=== PATIENT | female | born 1995 | race Two or more races ===

== ENCOUNTER 2021-09-03 17:15 | Inpatient (IN) | payer OTHER ==
[2021-09-03 18:49] VITALS: BMI 39.5
[2021-09-03] MEDS: ELECTROLYTE-148 SOLN 1,000 ML IV SCH (19:45)
[2021-09-03 20:26] LABS: BASO % 0.8 % (0-2.0); EOS % 0.1 % (0-4.5); HEMATOCRIT 39.9 % (32.4-45.2); HEMOGLOBIN 13.5 GM/dL (10.7-15.3); MCH 27.8 pg (25.7-33.7); MCHC 33.8 g/dl (32.0-36.0); MEAN CELL VOLUME 82.2 fl (80-96); MEAN PLT VOLUME 9.3 fl (7.5-11.1); MONO % 5.4 % (3.8-10.2); NEUT % 80.7 % (42.8-82.8); PLATELET COUNT 338 10^3/uL (134-434); RBC 4.86 M/mm3 (3.60-5.2); WHITE BLOOD COUNT 15.9 K/mm3 (4.0-10.0)
[2021-09-03 20:33] LABS: INR 0.96 (0.83-1.09)
[2021-09-03 20:36] LABS: ACTIVATED PTT 28.7 SECONDS (25.2-36.5)
[2021-09-03 20:48] LABS: CALCIUM 9.1 mg/dL (8.5-10.1)
[2021-09-03 20:49] LABS: BLOOD UREA NITROGEN 7.3 mg/dL (7-18)
[2021-09-03 20:52] LABS: CREATININE 0.6 mg/dL (0.55-1.3)
[2021-09-03] MEDS ORDERED: FENTANYL/BUPIVACAINE/NS/PF - PCEA - 50 ML DISP.SYRIN EP ONE (21:52)
[2021-09-03] MEDS ORDERED: OXYTOCIN 20 UNITS in 0.9% NS 20 UNIT/1,000 ML INFUS.BAG IV ONE (22:56)
[2021-09-03] MEDS ORDERED: LIDOCAINE HCL 1% PRESERVATIVE FREE - 30ML VIAL ONE (22:57)
[2021-09-03] MEDS ORDERED: MISOPROSTOL 200 MCG TABLET ONE (23:54)
[2021-09-04] MEDS ORDERED: oxyCODONE HCL 5 MG TABLET PO ONE (00:05)
[2021-09-04] MEDS ORDERED: oxyCODONE HCL 5 MG TABLET ONE (00:06)
[2021-09-04] MEDS ORDERED: BENZOCAINE 28 GM HEMORRHOIDAL OINTMENT TP PRN (00:09)
[2021-09-04] MEDS ORDERED: WITCH HAZEL 50% (TUCKS) 40 PAD/JAR PAD TP PRN (00:09)
[2021-09-04] MEDS ORDERED: BISACODYL 10 MG SUPP.RECT RC PRN (00:09)
[2021-09-04] MEDS ORDERED: METHYLERGONOVINE MALEATE 0.2 MG/1 ML AMP IM PRN (00:09)
[2021-09-04] MEDS ORDERED: BENZOCAINE 20% 57 GM BOTTLE TP PRN (00:09)
[2021-09-04] MEDS ORDERED: IBUPROFEN 600 MG TABLET (FP) PO PRN (00:09)
[2021-09-04] MEDS ORDERED: ACETAMINOPHEN 325 MG TABLET (FP) PO PRN (00:09)
[2021-09-04] MEDS ORDERED: OXYTOCIN 20 UNITS in 0.9% NS 20 UNIT/1,000 ML INFUS.BAG IV SCH (00:15)
[2021-09-04] MEDS ORDERED: MISOPROSTOL 25 MCG TABLET (COMPOUNDED BY PHARMACY) PV ONE (00:18)
[2021-09-04] MEDS ORDERED: DIPHTH,PERTUSS(ACELL),TET 0.5 ML DISP.SYRIN IM ONE (10:00)
[2021-09-04] MEDS: PRENATAL VITAMINS W/ FOLIC ACID TABLET (FP) PO SCH (10:25)
[2021-09-04] MEDS: ELECTROLYTE-148 SOLN 1,000 ML IV SCH (23:56)
[2021-09-05] MEDS: PRENATAL VITAMINS W/ FOLIC ACID TABLET (FP) PO SCH (09:17)
[2021-09-05 09:44] LABS: BASO % 0.1 % (0-2.0); EOS % 0.7 % (0-4.5); HEMATOCRIT 26.6 % (32.4-45.2); HEMOGLOBIN 8.9 GM/dL (10.7-15.3); LYMPH % 15.1 % (8-40); MCH 28.1 pg (25.7-33.7); MCHC 33.5 g/dl (32.0-36.0); MEAN CELL VOLUME 83.9 fl (80-96); MEAN PLT VOLUME 8.4 fl (7.5-11.1); MONO % 7.1 % (3.8-10.2); PLATELET COUNT 260 10^3/uL (134-434); RBC 3.16 M/mm3 (3.60-5.2); RDW 17.2 % (11.6-15.6)
[2021-09-05 12:10] VITALS: BP 116/74; PULSE 82; TEMP 98.8
[2021-09-05] MEDS ORDERED: SENNOSIDES/DOCUSATE COMBO (SENNA PLUS) TABLET (UD) PO PRN (22:00)
== END 2021-09-05 13:05 | disposition home or self-care (01) | DRG 560 ==
LOC: JDEL 17:15 → JLDR 18:15 → J3W 09-04 02:54
PROVIDERS: ADMIT Obstetrics & Gynecology; ATTEND Obstetrics & Gynecology
PROC: 10E0XZZ Delivery of Products of Conception, External Approach (ICD-10-PCS; principal; 2021-09-03)
PROC: 0HQ9XZZ Repair Perineum Skin, External Approach (ICD-10-PCS; 2021-09-03)
DX: O70.0 First degree perineal laceration during delivery (principal); O69.81X0 Labor and delivery complicated by cord around neck, without compression, not applicable or unspecified; O72.1 Other immediate postpartum hemorrhage; Z3A.39 39 weeks gestation of pregnancy; Z37.0 Single live birth
CPT/HCPCS: 36415; 59409; 80048; 85025; 85610; 85730; 86780; 86850; 86900; 86901; 90715; C9803-CS; U0003; U0005

== ENCOUNTER 2022-11-02 06:15 | Inpatient (IN) | payer OTHER ==
[2022-11-02] MEDS ORDERED: ELECTROLYTE-148 SOLN 1,000 ML IV SCH (08:15)
[2022-11-02 08:38] LABS: BASO % 0.3 % (0-2.0); EOS % 0.2 % (0-4.5); HEMATOCRIT 34.2 % (32.4-45.2); HEMOGLOBIN 10.8 GM/dL (10.7-15.3); LYMPH % 12.3 % (8-40); MCHC 31.7 g/dl (32.0-36.0); MEAN CELL VOLUME 69.4 fl (80-96); MONO % 6.5 % (3.8-10.2); NEUT % 80.7 % (42.8-82.8); PLATELET COUNT 439 10^3/uL (134-434); RBC 4.93 M/mm3 (3.60-5.2); RDW 20.5 % (11.6-15.6); WHITE BLOOD COUNT 15.6 K/mm3 (4.0-10.0)
[2022-11-02] MEDS ORDERED: OXYTOCIN 30 UNITS in 0.9% NS 30 UNIT/500 ML INFUS.BAG IVPB SCH (08:45)
[2022-11-02 08:49] LABS: INR 0.99 (0.83-1.09); PROTHROMBIN TIME (PATIENT) 11.5 SEC (9.7-13.0)
[2022-11-02 08:52] LABS: ACTIVATED PTT 30.2 SECONDS (25.2-36.5)
[2022-11-02 09:04] VITALS: BMI 41.9
[2022-11-02 09:04] LABS: POTASSIUM 4.4 mmol/L (3.5-5.1)
[2022-11-02 09:05] LABS: CALCIUM 9.2 mg/dL (8.5-10.1)
[2022-11-02 09:06] LABS: BLOOD UREA NITROGEN 7.3 mg/dL (7-18)
[2022-11-02 09:09] LABS: CREATININE 0.6 mg/dL (0.55-1.3)
[2022-11-02 09:21] LABS: ANISOCYTOSIS 1+; MACROCYTOSIS 0
[2022-11-02] MEDS ORDERED: BUPIVACAINE HCL/PF 0.25% (2.5MG/ML) 10 ML VIAL ONE (10:10)
[2022-11-02] MEDS ORDERED: LIDO 2%/EPI 1:200000 PRESRVFRE (20 ML SDVIAL) ONE (10:10)
[2022-11-02] MEDS ORDERED: FENTANYL/BUPIVACAINE/NS/PF - PCEA - 50 ML DISP.SYRIN EP ONE (10:12)
[2022-11-02] MEDS ORDERED: OXYTOCIN 30 UNITS in 0.9% NS 30 UNIT/500 ML INFUS.BAG IVPB ONE (10:43)
[2022-11-02] MEDS ORDERED: NALOXONE HCL 0.4 MG/ML VIAL IVPUSH PRN (10:56)
[2022-11-02] MEDS ORDERED: FENTANYL/BUPIVACAINE/NS/PF - PCEA - 50 ML DISP.SYRIN EP SCH (11:00)
[2022-11-02] MEDS ORDERED: OXYTOCIN 20 UNITS in 0.9% NS 20 UNIT/1,000 ML INFUS.BAG IV ONE (12:06)
[2022-11-02] MEDS ORDERED: LIDOCAINE HCL 1% PRESERVATIVE FREE - 30ML VIAL ONE (12:06)
[2022-11-02] MEDS ORDERED: ACETAMINOPHEN 325 MG TABLET (FP) PO PRN (12:39)
[2022-11-02] MEDS ORDERED: METHYLERGONOVINE MALEATE 0.2 MG/1 ML AMP IM PRN (12:39)
[2022-11-02] MEDS ORDERED: BENZOCAINE 28 GM HEMORRHOIDAL OINTMENT TP PRN (12:39)
[2022-11-02] MEDS ORDERED: WITCH HAZEL 50% (TUCKS) 40 PAD/JAR PAD TP PRN (12:39)
[2022-11-02] MEDS ORDERED: BENZOCAINE 20% 57 GM BOTTLE TP PRN (12:39)
[2022-11-02] MEDS ORDERED: BISACODYL 10 MG SUPP.RECT RC PRN (12:39)
[2022-11-02] MEDS ORDERED: oxyCODONE HCL 5 MG TABLET PO PRN (12:39)
[2022-11-02] MEDS ORDERED: OXYTOCIN 20 UNITS in 0.9% NS 20 UNIT/1,000 ML INFUS.BAG IV SCH (12:45)
[2022-11-02] MEDS: PROMETHAZINE HCL 25 MG/1 ML VIAL IVPB SCH (14:42)
[2022-11-02] MEDS: BUTORPHANOL TARTRATE 1 MG/ML VIAL IVPB SCH ×2 (14:42→14:43)
[2022-11-02] MEDS: IBUPROFEN 600 MG TABLET (FP) PO PRN (20:53)
[2022-11-03] MEDS: IBUPROFEN 600 MG TABLET (FP) PO PRN (06:38)
[2022-11-03 07:53] LABS: BASO % 0.2 % (0-2.0); EOS % 1.7 % (0-4.5); HEMOGLOBIN 9.5 GM/dL (10.7-15.3); LYMPH % 22.9 % (8-40); MCH 21.5 pg (25.7-33.7); MCHC 30.8 g/dl (32.0-36.0); MEAN CELL VOLUME 69.9 fl (80-96); MEAN PLT VOLUME 8.7 fl (7.5-11.1); NEUT % 68.2 % (42.8-82.8); PLATELET COUNT 363 10^3/uL (134-434); RBC 4.43 M/mm3 (3.60-5.2); RDW 20.7 % (11.6-15.6); WHITE BLOOD COUNT 11.7 K/mm3 (4.0-10.0)
[2022-11-03] MEDS: PRENATAL VITAMINS W/ FOLIC ACID TABLET (FP) PO SCH (09:07)
[2022-11-03] MEDS ORDERED: DIPHTH,PERTUSS(ACELL),TET 0.5 ML DISP.SYRIN IM ONE (10:00)
[2022-11-03] MEDS ORDERED: SENNOSIDES/DOCUSATE COMBO (SENNA PLUS) TABLET (UD) PO PRN (22:00)
[2022-11-03 22:47] VITALS: RESP 18
[2022-11-04 08:11] VITALS: BP 119/65; PULSE 81; TEMP 98
[2022-11-04] MEDS: PRENATAL VITAMINS W/ FOLIC ACID TABLET (FP) PO SCH (09:13)
== END 2022-11-04 12:50 | disposition home or self-care (01) | DRG 560 ==
LOC: JLDR 06:15 → J3W 14:30
PROVIDERS: ADMIT Obstetrics & Gynecology; ATTEND Obstetrics & Gynecology
PROC: 10E0XZZ Delivery of Products of Conception, External Approach (ICD-10-PCS; principal; 2022-11-02)
DX: O80 Encounter for full-term uncomplicated delivery (principal); Z3A.40 40 weeks gestation of pregnancy; Z37.0 Single live birth
CPT/HCPCS: 36415; 80048; 85025; 85610; 85730; 86780; 86850; 86900; 86901; 90715

== ENCOUNTER 2023-01-18 06:19 | Emergency (ER) | payer OTHER ==
[2023-01-18 06:27] VITALS: TEMP 97.9; BMI 41.5
[2023-01-18] MEDS ORDERED: MAG HYDROX/AL HYDROX/SIMETH -MYLANTA- ORAL SUSPENSION PO ONE (06:38)
[2023-01-18] MEDS ORDERED: SUCRALFATE 1 GM TABLET (FP) PO ONE (06:38)
[2023-01-18] MEDS ORDERED: FAMOTIDINE 20 MG TABLET PO ONE (06:38)
[2023-01-18] MEDS ORDERED: MAG HYDROX/AL HYDROX/SIMETH 30 ML UNIT-DOSE CUP ONE (06:40)
[2023-01-18] MEDS ORDERED: FAMOTIDINE 20 MG TABLET ONE (06:40)
[2023-01-18] MEDS ORDERED: SUCRALFATE 1 GM TABLET (FP) ONE (06:42)
[2023-01-18 08:06] LABS: POTASSIUM 4.5 mmol/L (3.5-5.1)
[2023-01-18 08:08] LABS: ALBUMIN 3.2 g/dl (3.4-5.0)
[2023-01-18 08:09] LABS: BLOOD UREA NITROGEN 11.6 mg/dL (7-18)
[2023-01-18 08:11] LABS: CREATININE 0.6 mg/dL (0.55-1.3)
[2023-01-18 08:13] LABS: BILIRUBIN,TOTAL 0.2 mg/dL (0.2-1); TOT PROT 7.2 g/dl (6.4-8.2)
[2023-01-18 08:15] LABS: BASO % 0.4 % (0-2.0); EOS % 1.5 % (0-4.5); HEMATOCRIT 36.4 % (32.4-45.2); HEMOGLOBIN 11.4 GM/dL (10.7-15.3); LYMPH % 27.8 % (8-40); MCH 22.2 pg (25.7-33.7); MCHC 31.5 g/dl (32.0-36.0); MEAN CELL VOLUME 70.6 fl (80-96); MEAN PLT VOLUME 8.8 fl (7.5-11.1); MONO % 7.5 % (3.8-10.2); NEUT % 62.8 % (42.8-82.8); PLATELET COUNT 462 10^3/uL (134-434); RBC 5.15 M/mm3 (3.60-5.2); RDW 16.5 % (11.6-15.6); WHITE BLOOD COUNT 9.7 K/mm3 (4.0-10.0)
[2023-01-18 08:23] LABS: EPI CELLS 31 /uL (0-25.1); HYALINE CASTS 5 /uL (0-3.1); PH,URINE 5.5 (5.0-8.0); URINE APPEARANCE CLEAR; URINE BACTERIA 4213 /uL (0-1359); URINE BILIRUBIN NEGATIVE (NEGATIVE); URINE COLOR YELLOW; URINE GLUCOSE (UA) NEGATIVE (NEGATIVE); URINE KETONE NEGATIVE (NEGATIVE); URINE LEUK ESTERASE 1+ (NEGATIVE); URINE NITRITE NEGATIVE (NEGATIVE); URINE PROTEIN NEGATIVE (NEGATIVE); URINE UROBILINOGEN 0.2 mg/dL (0.2-1.0); URINE WBC 249 /uL (0-25.8)
[2023-01-18 08:47] LABS: URINE RBC 65.9 /uL (0-23.9)
[2023-01-18] MEDS ORDERED: CEFTRIAXONE 1,000 MG in DEXTROSE 5%-WATER - 50 ML IVPB ONE (10:01)
[2023-01-18] MEDS ORDERED: CEFTRIAXONE 1 GM/50 ML BAG ONE (10:26)
[2023-01-18 11:51] VITALS: BP 108/50; PULSE 78; RESP 20
== END 2023-01-18 12:20 | disposition home or self-care (01) ==
LOC: JER 06:19
DX: R10.11 Right upper quadrant pain (principal); K80.20 Calculus of gallbladder without cholecystitis without obstruction; N39.0 Urinary tract infection, site not specified
CPT/HCPCS: 36415; 74177-TC; 76705-TC; 80053; 81003; 83690; 84703; 85025; 87086; 99285-25; Q9967

== ENCOUNTER 2024-04-05 23:40 | Inpatient (IN) | payer OTHER ==
[2024-04-06 00:53] VITALS: BMI 44.6
[2024-04-06 01:21] LABS: BASO % 0.1 % (0-2.0); EOS % 0.6 % (0-4.5); HEMATOCRIT 36.6 % (32.4-45.2); HEMOGLOBIN 12.1 GM/dL (10.7-15.3); LYMPH % 21.3 % (8-40); MCH 25.5 pg (25.7-33.7); MCHC 33.1 g/dl (32.0-36.0); MEAN CELL VOLUME 76.8 fl (80-96); MEAN PLT VOLUME 9.1 fl (7.5-11.1); MONO % 6.3 % (3.8-10.2); NEUT % 71.7 % (42.8-82.8); PLATELET COUNT 353 10^3/uL (134-434); RBC 4.76 M/mm3 (3.60-5.2); RDW 16.4 % (11.6-15.6); WHITE BLOOD COUNT 10.3 K/mm3 (4.0-10.0)
[2024-04-06 01:29] LABS: INR 0.96 (0.83-1.09); PROTHROMBIN TIME (PATIENT) 11.1 SEC (9.7-13.0)
[2024-04-06 01:32] LABS: ACTIVATED PTT 28.9 SECONDS (25.2-36.5)
[2024-04-06 01:40] LABS: POTASSIUM 3.9 mmol/L (3.5-5.1)
[2024-04-06 01:42] LABS: BLOOD UREA NITROGEN 7.3 mg/dL (7-18); CALCIUM 8.8 mg/dL (8.5-10.1)
[2024-04-06 01:43] LABS: ALBUMIN 2.3 g/dl (3.4-5.0)
[2024-04-06 01:45] LABS: CREATININE 0.8 mg/dL (0.55-1.3)
[2024-04-06 01:47] LABS: BILIRUBIN,TOTAL 0.4 mg/dL (0.2-1); TOT PROT 6.4 g/dl (6.4-8.2)
[2024-04-06] MEDS: LABETALOL HCL 100 MG TABLET (FP) PO SCH (02:20)
[2024-04-06] MEDS: ELECTROLYTE-148 SOLN 1,000 ML IV SCH (02:20)
[2024-04-06] MEDS: ACETAMINOPHEN 325 MG TABLET (FP) PO ONE (02:20)
[2024-04-06] MEDS ORDERED: OXYTOCIN 30 UNITS in 0.9% NS 30 UNIT/500 ML INFUS.BAG IVPB ONE (04:07)
[2024-04-06] MEDS: OXYTOCIN 30 UNITS in 0.9% NS 30 UNIT/500 ML INFUS.BAG IVPB SCH (04:15)
[2024-04-06] MEDS ORDERED: FENTANYL/BUPIVACAINE/NS/PF - PCEA - 50 ML DISP.SYRIN EP ONE (07:29)
[2024-04-06] MEDS ORDERED: BUPIVACAINE HCL/PF 0.25% (2.5MG/ML) 10 ML VIAL ONE (07:30)
[2024-04-06] MEDS ORDERED: FENTANYL CITRATE/PF 50 MCG/ML VIAL ONE (07:30)
[2024-04-06] MEDS: FENTANYL/BUPIVACAINE/NS/PF - PCEA - 50 ML DISP.SYRIN EP SCH (07:45)
[2024-04-06] MEDS ORDERED: NALOXONE HCL 0.4 MG/ML VIAL IVPUSH PRN (09:14)
[2024-04-06] MEDS ORDERED: LABETALOL HCL 100 MG TABLET (FP) ONE ×2 (09:39→11:57)
[2024-04-06] MEDS ORDERED: OXYTOCIN 20 UNITS in 0.9% NS 20 UNIT/1,000 ML INFUS.BAG IV ONE (09:46)
[2024-04-06] MEDS ORDERED: LABETALOL HCL 100 MG TABLET (FP) PO SCH (10:00)
[2024-04-06] MEDS ORDERED: MISOPROSTOL 200 MCG TABLET ONE (10:01)
[2024-04-06] MEDS: MISOPROSTOL 200 MCG TABLET NR ONE (10:05)
[2024-04-06] MEDS: CARBOPROST TROMETHAMINE 250 MCG/ML AMPUL IM ONE (10:10)
[2024-04-06] MEDS ORDERED: METHYLERGONOVINE MALEATE 0.2 MG/1 ML AMP IM PRN (10:57)
[2024-04-06] MEDS ORDERED: BENZOCAINE 20% 57 GM BOTTLE TP PRN (10:57)
[2024-04-06] MEDS ORDERED: BENZOCAINE 28 GM HEMORRHOIDAL OINTMENT TP PRN (10:57)
[2024-04-06] MEDS ORDERED: WITCH HAZEL 50% (TUCKS) 40 PAD/JAR PAD TP PRN (10:57)
[2024-04-06] MEDS ORDERED: BISACODYL 10 MG SUPP.RECT RC PRN (10:57)
[2024-04-06] MEDS: OXYTOCIN 20 UNITS in 0.9% NS 20 UNIT/1,000 ML INFUS.BAG IV SCH (11:05)
[2024-04-06] MEDS: IBUPROFEN 600 MG TABLET (FP) PO PRN (11:05)
[2024-04-06 15:23] VITALS: RESP 18
[2024-04-06] MEDS: ACETAMINOPHEN 325 MG TABLET (FP) PO PRN (21:40)
[2024-04-07 07:53] LABS: BASO % 0.3 % (0-2.0); EOS % 0.9 % (0-4.5); HEMATOCRIT 28.2 % (32.4-45.2); HEMOGLOBIN 9.3 GM/dL (10.7-15.3); LYMPH % 21.1 % (8-40); MCH 25.9 pg (25.7-33.7); MCHC 33.2 g/dl (32.0-36.0); MEAN CELL VOLUME 78.2 fl (80-96); MEAN PLT VOLUME 8.8 fl (7.5-11.1); MONO % 6.6 % (3.8-10.2); NEUT % 71.1 % (42.8-82.8); RDW 16.9 % (11.6-15.6); WHITE BLOOD COUNT 10.7 K/mm3 (4.0-10.0)
[2024-04-07] MEDS: FLU VACCINE (FLULAVAL) PF 45 MCG/0.5 ML SYRINGE 2024-2025 IM ONE (09:23)
[2024-04-07 10:17] LABS: PLATELET COUNT 256 10^3/uL (134-434)
[2024-04-07] MEDS ORDERED: SENNOSIDES/DOCUSATE COMBO (SENNA PLUS) TABLET (UD) PO PRN (22:00)
[2024-04-08 09:27] VITALS: BP 127/93; PULSE 97; TEMP 98.2
== END 2024-04-08 13:30 | disposition home or self-care (01) | DRG 560 ==
LOC: JDEL 23:40 → JLDR 04-06 00:05 → J3W 04-06 12:25
PROVIDERS: ADMIT Student in an Organized Health Care Education/Training Program; ATTEND Student in an Organized Health Care Education/Training Program
PROC: 0HQ9XZZ Repair Perineum Skin, External Approach (ICD-10-PCS; principal; 2024-04-06)
PROC: 10E0XZZ Delivery of Products of Conception, External Approach (ICD-10-PCS; 2024-04-06)
DX: O14.04 Mild to moderate pre-eclampsia, complicating childbirth (principal); O76 Abnormality in fetal heart rate and rhythm complicating labor and delivery; O70.0 First degree perineal laceration during delivery; Z3A.39 39 weeks gestation of pregnancy; Z37.0 Single live birth
CPT/HCPCS: 36415; 59409; 80053; 82570; 84156; 85025; 85610; 85730; 86780; 86850; 86900; 86901; 90656; G0008